=== PATIENT | male | born 1945 | race Caucasian/White ===

== ENCOUNTER 2018-03-24 08:57 | Day surgery (SDC) | payer MEDICARE ==
[2018-03-23 12:01] LABS: BASOPHILS % (AUTO) 0.4 % (0-1); EOSINOPHILS # (AUTO) 0.1 X10'3 (0-0.9); EOSINOPHILS % (AUTO) 2.7 % (0-6); HEMATOCRIT 43.7 % (42.0-52.0); LYMPHOCYTES # (AUTO) 1.6 X10'3 (1.1-4.8); LYMPHOCYTES % (AUTO) 31.7 % (21-51); MEAN CORPUSCULAR HEMOGLOBIN 32.6 PG (27.0-31.0); MEAN CORPUSCULAR HGB CONC 34.4 % (33.0-36.5); MEAN CORPUSCULAR VOLUME 94.8 FL (78-98); MEAN PLATELET VOLUME 8.9 FL (7.4-10.4); MONOCYTES # (AUTO) 0.5 X10'3 (0-0.9); MONOCYTES % (AUTO) 10.9 % (2-12); NEUTROPHILS # (AUTO) 2.7 X10'3 (1.8-7.7); NEUTROPHILS % (AUTO) 54.3 % (42-75); PLATELET COUNT 209 X10'3 (140-440); RED BLOOD COUNT 4.61 X10'6 (4.70-6.10); RED CELL DISTRIBUTION WIDTH 12.6 % (11.5-14.5)
[2018-03-23 12:10] LABS: PARTIAL THROMBOPLASTIN TIME 25 SECONDS (22-32); PROTHROMBIN TIME 10.4 SECONDS (9.0-12.0)
[2018-03-23 12:11] LABS: ALBUMIN 3.6 G/DL (3.4-5.0); ANION GAP 7 (8-16); BLOOD UREA NITROGEN 21 MG/DL (7-18); BUN/CREATININE RATIO 21.6 (5.4-32.0); CALCIUM 9.1 MG/DL (8.5-10.1); CHLORIDE 107 MMOL/L (99-107); CREATININE 0.97 MG/DL (0.60-1.10); GLUCOSE 91 MG/DL (70-104); POTASSIUM 4.2 MMOL/L (3.5-5.1); SODIUM 142 MMOL/L (135-145); eGFR 76 ML/MIN
[2018-03-24] VITALS (12 sets, daily range): BP systolic 109–140; BP diastolic 58–80
[~2018-03-24] VITALS: Ht 175.3 cm; Wt 80.4 kg
[2018-03-24] MEDS ORDERED: diphenhydrAMINE 25mg capsule PO PRN (09:15)
[2018-03-24] MEDS ORDERED: LORazepam 0.5 MG tablet PO PRN (09:15)
[2018-03-24] MEDS ORDERED: normal saline 1000ml 1,000 ML IV SCH (09:15)
[2018-03-24] MEDS ORDERED: LIDOcaine 1% (10mg/ml) 2ml vial ONE (09:20)
[2018-03-24] MEDS ORDERED: GLUC100017 PO (10:59)
[2018-03-24] MEDS ORDERED: OSC500T PO (10:59)
[2018-03-24] MEDS ORDERED: PRAV80TA3 PO (10:59)
[2018-03-24] MEDS ORDERED: ASPI-1265 PO (10:59)
[2018-03-24] MEDS ORDERED: LISI-600 PO (10:59)
[2018-03-24] MEDS ORDERED: CALC500T11 PO (10:59)
[2018-03-24] MEDS ORDERED: OMEG1CAP2 PO (10:59)
[2018-03-24] MEDS ORDERED: VITAMIN A PO (10:59)
[2018-03-24] MEDS ORDERED: [UNRECOGNIZED DRUG - CODE] PO (10:59)
[2018-03-24] MEDS ORDERED: iohexol 350 MG/ML 50ML vial IV ONE ×2 (11:20→12:19)
[2018-03-24] MEDS ORDERED: nitroGLYCERIN-Tridil 50MG/D5W 250 ML IV ONE (11:20)
[2018-03-24] MEDS ORDERED: iohexol 350MG/ML 100ml bottle IV ONE (11:20)
[2018-03-24] MEDS ORDERED: heparin 1,000unit/ml 10ml vial 10 ML ONE (11:20)
[2018-03-24] MEDS ORDERED: LIDOcaine 1%/PF (10mg/ml) 5ml vial ONE (11:20)
[2018-03-24] MEDS ORDERED: midazolam 2 mg/2 ml injection ONE (11:25)
[2018-03-24] MEDS ORDERED: fentaNYL/PF 50MCG/1 ML 2ML syringe ONE (11:25)
[2018-03-25 09:45] LABS: ISTAT Hct MIX 40 %PCV (42-52); ISTAT O2 SATURATION MIX VENOUS 77 % (60-80); ISTAT SOURCE MIX
[2018-03-25 09:50] LABS: ISTAT HGB ART 13.9 g/dl (14.0-18.0); ISTAT Hct ART 41 %PCV (42-52); ISTAT O2 SATURATION ARTERIAL 99 % (95-98); ISTAT SOURCE ART
== END 2018-03-24 19:00 | disposition home or self-care (01) ==
LOC: SSTAY O 08:57
PROVIDERS: ATTEND Internal Medicine Cardiovascular Disease
DX: I25.10 Atherosclerotic heart disease of native coronary artery without angina pectoris (principal); E78.5 Hyperlipidemia, unspecified; I45.19 Other right bundle-branch block; I65.21 Occlusion and stenosis of right carotid artery; I10 Essential (primary) hypertension; Z86.73 Personal history of transient ischemic attack (TIA), and cerebral infarction without residual deficits; Z79.82 Long term (current) use of aspirin; Z79.899 Other long term (current) drug therapy; Z98.890 Other specified postprocedural states; Z72.89 Other problems related to lifestyle
CPT/HCPCS: 36415; 80048; 82803; 85014; 85025; 85610; 85730; 93005; 93460; 99152; 99153; A6257; C1760; C1769; J1644; J2001; J2250; J3010; J3490; J7030; Q0163; Q9967; 93458; A4620

== ENCOUNTER 2021-01-04 06:58 | Day surgery (SDC) | payer MEDICARE ==
[~2021-01-04] VITALS: Ht 175.3 cm; Wt 84.7 kg
[2021-01-04] VITALS (17 sets, daily range): BP systolic 81–182; BP diastolic 52–106
[~2021-01-04 06:58] MED LIST: ASPI-1265 PO; CALC500T11 PO; GLUC100017 PO; LISI-600 PO; OMEG1CAP2 PO; OSC500T PO; PRAV80TA3 PO; VITAMIN A PO; [UNRECOGNIZED DRUG - CODE] PO
[2021-01-04] MEDS ORDERED: normal saline 1000ml 1,000 ML IV PRN (07:30)
[2021-01-04] MEDS ORDERED: diphenhydrAMINE 25mg capsule PO ONE (07:40)
[2021-01-04] MEDS ORDERED: amiodarone 150mg/dext, iso-os 100 ML IV ONE (07:40)
[2021-01-04] MEDS ORDERED: morphine 10mg/ml inj. IV ONE (07:40)
[2021-01-04] MEDS ORDERED: LORazepam 0.5 MG tablet PO ONE (07:40)
[2021-01-04] MEDS ORDERED: MIDAZolam 1mg/ml 10ml vial IV ONE (07:40)
[2021-01-04] MEDS ORDERED: atropine 0.1mg/ml 10ml syringe IV ONE (07:40)
[2021-01-04] MEDS ORDERED: APIX5TAB3 PO (08:11)
[2021-01-04] MEDS ORDERED: MULT-1085 PO (08:11)
[2021-01-04] MEDS ORDERED: CHOL400T8 PO (08:11)
[2021-01-04] MEDS ORDERED: ATOR80TA PO (08:11)
[2021-01-04] MEDS ORDERED: AMIO200T27 PO (08:11)
[2021-01-04] MEDS ORDERED: CARV6.253 PO (08:11)
[2021-01-04 08:48] LABS: BASOPHILS % (AUTO) 0.5 % (0-1); EOSINOPHILS # (AUTO) 0.1 X10'3 (0-0.9); EOSINOPHILS % (AUTO) 2.2 % (0-6); HEMATOCRIT 54.6 % (42.0-52.0); LYMPHOCYTES # (AUTO) 1.5 X10'3 (1.1-4.8); LYMPHOCYTES % (AUTO) 22.5 % (21-51); MEAN CORPUSCULAR HEMOGLOBIN 32.2 PG (27.0-31.0); MEAN CORPUSCULAR HGB CONC 33.3 g/dL (33.0-36.5); MEAN CORPUSCULAR VOLUME 96.6 FL (78-98); MEAN PLATELET VOLUME 9.3 FL (7.4-10.4); MONOCYTES # (AUTO) 0.7 X10'3 (0-0.9); MONOCYTES % (AUTO) 10.2 % (2-12); NEUTROPHILS # (AUTO) 4.3 X10'3 (1.8-7.7); NEUTROPHILS % (AUTO) 64.6 % (42-75); PLATELET COUNT 190 X10'3 (140-440); RED BLOOD COUNT 5.65 X10'6 (4.70-6.10); RED CELL DISTRIBUTION WIDTH 13.4 % (11.5-14.5); WHITE BLOOD COUNT 6.7 X10'3 (4.5-11.0)
[2021-01-04 08:53] LABS: HEMOGLOBIN 18.2 g/dl (14.0-17.9)
[2021-01-04 08:56] LABS: ALBUMIN 4.2 G/DL (3.4-5.0); ANION GAP 9 (8-16); BLOOD UREA NITROGEN 20 MG/DL (7-18); BUN/CREATININE RATIO 15.2 (5.4-32.0); CALCIUM 8.8 MG/DL (8.5-10.1); CHLORIDE 105 MMOL/L (99-107); CREATININE 1.32 MG/DL (0.60-1.10); GLUCOSE 95 MG/DL (70-104); POTASSIUM 4.1 MMOL/L (3.5-5.1); SODIUM 141 MMOL/L (135-145); TOTAL CARBON DIOXIDE 27.5 MMOL/L (24-32); eGFR 53 ML/MIN
== END 2021-01-04 14:20 | disposition home or self-care (01) ==
LOC: SSTAY O 06:58
PROVIDERS: ATTEND Internal Medicine Cardiovascular Disease
DX: I48.91 Unspecified atrial fibrillation (principal); I48.19 Other persistent atrial fibrillation; I10 Essential (primary) hypertension; Z79.899 Other long term (current) drug therapy; Z98.890 Other specified postprocedural states
CPT/HCPCS: 36415; 80048; 85025; 92960; 93005; 94799; J2250; J2270; J7030

== ENCOUNTER 2021-07-03 08:38 | Outpatient (CLI) | payer MEDICARE ==
[~2021-07-03 08:38] MED LIST changes: +AMIO200T27 PO; +APIX5TAB3 PO; +ATOR80TA PO; -CALC500T11 PO; +CARV6.253 PO; +CHOL400T8 PO; -GLUC100017 PO; -LISI-600 PO; +LISI20TA28 PO; +MULT-1085 PO; -OMEG1CAP2 PO; -OSC500T PO; -PRAV80TA3 PO; -VITAMIN A PO
[2021-07-03 09:03] LABS: TOTAL HEMOGLOBIN 17.7 G/dl (14.0-18.0)
== END 2021-07-03 23:59 | disposition home or self-care (01) ==
LOC: RT 08:38
PROVIDERS: ATTEND Internal Medicine Cardiovascular Disease
DX: R06.02 Shortness of breath (principal); M47.814 Spondylosis without myelopathy or radiculopathy, thoracic region; I70.0 Atherosclerosis of aorta; Z79.899 Other long term (current) drug therapy
CPT/HCPCS: 71046; 85018; 94010; 94727; 94729

== ENCOUNTER 2024-05-03 06:10 | Emergency (ER) | payer MEDICARE ==
[~2024-05-03] VITALS: Ht 175.3 cm; Wt 81.8 kg
[~2024-05-03 06:10] MED LIST changes: +AMIO100T4 PO; -AMIO200T27 PO; -CHOL400T8 PO; -[UNRECOGNIZED DRUG - CODE] PO
[2024-05-03 06:11] VITALS: BP 153/82; PULSE 68; TEMP 98; O2SAT 97
[2024-05-03] MEDS ORDERED: TRAM50TA2 PO (06:37)
[2024-05-03] MEDS ORDERED: ketorolac tromethamine 15mg/ml inj. IM ONE (07:45)
[2024-05-03] MEDS ORDERED: ketorolac trometh. 30mg/ml inj. IV ONE (08:05)
[2024-05-03 08:09] VITALS: RESP 12
[2024-05-03] MEDS: ketorolac trometh. 30mg/ml inj. IM ONE (08:09)
== END 2024-05-03 08:21 | disposition home or self-care (01) ==
LOC: ER 06:10
DX: M54.32 Sciatica, left side (principal); I48.91 Unspecified atrial fibrillation; I25.10 Atherosclerotic heart disease of native coronary artery without angina pectoris; I10 Essential (primary) hypertension; I25.2 Old myocardial infarction
CPT/HCPCS: 73502; 96372; 99283; J1885

== ENCOUNTER 2024-05-05 06:38 | Emergency (ER) | payer MEDICARE ==
[~2024-05-05] VITALS: Ht 175.3 cm; Wt 81.8 kg
[~2024-05-05 06:38] MED LIST changes: +TRAM50TA2 PO
[2024-05-05] MEDS: triamcinolone acetonide 40mg/ml inj IM ONE (08:02)
[2024-05-05] MEDS: cyclobenzaprine 10mg tablet PO ONE (08:02)
[2024-05-05] MEDS: orphenadrine citrate 60mg/2ml inj. IM ONE (08:02)
[2024-05-05] MEDS ORDERED: CYCL-1 PO (10:44)
[2024-05-05 10:54] VITALS: BP 149/80; PULSE 60; RESP 18; TEMP 97.6; O2SAT 98
== END 2024-05-05 10:58 | disposition home or self-care (01) ==
LOC: ER 06:39
DX: M25.551 Pain in right hip (principal); M54.32 Sciatica, left side; I48.91 Unspecified atrial fibrillation; I25.10 Atherosclerotic heart disease of native coronary artery without angina pectoris; I10 Essential (primary) hypertension; I25.2 Old myocardial infarction; G89.29 Other chronic pain; M54.9 Dorsalgia, unspecified; Z79.82 Long term (current) use of aspirin; Z79.899 Other long term (current) drug therapy; Z88.6 Allergy status to analgesic agent
CPT/HCPCS: 72100; 93005; 96372; 99285; J2360; J3301